=== PATIENT | female | born 2000 | race Caucasian/White ===

== ENCOUNTER 2018-03-06 16:51 | Emergency (ER) | payer SELFPAY ==
[2018-03-06 17:04] VITALS: BP 148/70; PULSE 118; O2SAT 100
--- NOTE | 2018-03-06 17:23 | ERPHSYRPT ---
- History of Present Illness Time Seen by Provider: 03/06/18 17:13 Source: patient Exam Limitations: no limitations Patient Subjective Stated Complaint: pt reports waking up this morning with a sorethroat and fever-states it has gotten worse today-mother states that she is concernced pt is pregant-last period february 01-home test yesterday was negative-pt gave in dec Triage Nursing Assessment: pt pink warm and [id number] easy and nonlabored- no hoarseness noted-no drooling noted Physician History: The patient is a 17-year-old female with her mother complaining that she woke up today with a sore throat and not feeling well. She had some aches and pains and a fever. She took some Tylenol this afternoon without relief. She denies nausea, vomiting, or diarrhea. She has a mild headache. The patient's mother tells me that the patient might be . The patient states she has taken 9 home tests in the last week and they've all been negative. I've offered a urine test but she declines because she cannot urinate. I offered a serum test but the patient does not want one because it involves a needle stick. She decided she doesn't want to be checked to see if she is . Her past medical history is significant for bipolar disorder for which she does not take any medicine at this time. 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 Associated Symptoms: sore throat Allergies/Adverse Reactions: No Known Drug Allergies Allergy (Unverified 03/06/18 17:04) Home Medications: No Reportable Medications [No Reported Medications] 03/06/18 [History] Hx Tetanus, Diphtheria Vaccination/Date Given: Yes Hx Influenza Vaccination/Date Given: Yes Hx Pneumococcal Vaccination/Date Given: No Immunizations Up to Date: Yes - Review of Systems Constitutional: Fever Eyes: No Symptoms Ears, Nose, & Throat: Throat Pain Respiratory: No Cough, No Dyspnea Cardiac: No Chest Pain, No Edema, No Syncope Abdominal/Gastrointestinal: No Abdominal Pain, No Nausea, No Vomiting, No Diarrhea Genitourinary Symptoms: No Dysuria Musculoskeletal: No Back Pain, No Neck Pain Skin: No Rash Neurological: No Dizziness, No Focal Weakness, No Sensory Changes Psychological: No Symptoms Endocrine: No Symptoms Hematologic/Lymphatic: No Symptoms Immunological/Allergic: No Symptoms All Other Systems: Reviewed and Negative - Past Medical History Pertinent Past Medical History: Yes Psycho-Social History: Bipolar - Past Surgical History Past Surgical History: No - Social History Smoking Status: Never smoker Exposure to second hand smoke: No Drug Use: none Patient Lives Alone: No - Female History Hx Last Menstrual Period: february 01 2018 Hx Now: Yes (unkown) - Nursing Vital Signs Nursing Vital Signs: Initial Vital Signs Temperature 101.9 F 03/06/18 16:58 Pulse Rate 118 H 03/06/18 16:58 Respiratory Rate 18 03/06/18 16:58 Blood Pressure 148/70 03/06/18 16:58 O2 Sat by Pulse Oximetry 100 03/06/18 16:58 Pain Scale Pain Intensity 8 - Physical Exam General Appearance: no apparent distress, alert Eye Exam: PERRL/EOMI ENT Exam: pharyngeal erythema Neck Exam: supple, full range of motion, No meningismus Respiratory Exam: normal breath sounds, lungs clear, no respiratory distress Cardiovascular/Chest Exam: tachycardia Gastrointestinal/Abdominal Exam: soft, non tender, no distention Pelvic Exam: deferred Rectal Exam: not done Extremity Exam: non-tender, normal range of motion, normal inspection, normal capillary refill Neurologic Exam: alert, oriented x 3, cooperative, examination scorer II-XII nml as tested, normal mood/affect, sensation nml, No motor deficits Skin Exam: normal color, warm, dry, No rash SpO2 Interpretation: normal SpO2: 100 Oxygen Delivery: Room Air Ordered Tests: Active Orders 24 hr Category Date Time Status CULTURE, THROAT Stat Lab 03/06/18 17:35 Received STREP SCREEN-BETA A Stat Lab 03/06/18 17:35 Completed Medication Summary Discontinued Medications Generic Name Dose Route Start Last Admin Trade Name Cici PRN Reason Stop Dose Admin Ketorolac Tromethamine 60 mg 03/06/18 17:27 03/06/18 17:48 Toradol 30 Mg Injection IM 03/06/18 17:28 60 mg STAT ONE Administration Ketorolac Tromethamine Confirm 03/06/18 17:44 Toradol 30 Mg Injection Administered 03/06/18 17:45 Dose 60 mg .ROUTE .STK-MED ONE Lab/Rad Data: Laboratory Results 03/06/18 Range/Units 17:35 Streptococcus Screen NEGATIVE (Negative) - Progress Progress: improved Counseled pt/family regarding: lab results, diagnosis - Departure Time of Disposition: 18:07 Departure Disposition: Home Clinical Impression: Fever, Acute pharyngitis Condition: Stable Critical Care Time: No Additional Instructions: You have a fever and a sore throat caused by a viral illness area and your strep test was negative. You were given Toradol 60 mg by IM in the ER. Continue with pain relief I taking Tylenol 1000 mg every 8 hours and ibuprofen 800 mg every 8 hours. Stay well hydrated. Follow-up tomorrow with your primary medical doctor if no improvement.
[2018-03-06] MEDS ORDERED: TORAdol 30 mg Injection IM ONE (17:27)
[2018-03-06] MEDS ORDERED: TORAdol 30 mg Injection ONE (17:44)
== END 2018-03-06 18:44 | disposition home or self-care (01) ==
LOC: ED 16:51
DX: J02.9 Acute pharyngitis, unspecified (principal); R51 Headache; R50.9 Fever, unspecified
CPT/HCPCS: 87070; 87430; 96372; 99283; 99284; J1885